=== PATIENT | female | born 1960 | race Caucasian/White ===

== ENCOUNTER → 2016-12-21 | Day surgery (SDC) | payer OTHER ==
--- NOTE | 2016-12-18 12:58 | History & Physical Pre-Op ---
General Information and HPI History of Present Illness: Mrs. Chery is a 56-year-old female with a long-standing and worsening complaint of painful and enlarging cysts on the digits of her right foot. The patient has undergone an extended course of conservative care, including shoe gear changes, reduction and activity, padding and NSAIDs. None of this is yielded her any significant relief. The patient presents today for preoperative surgical consultation and was referred to our office by Oscar Ramirez DPM. Allergies/Medications Allergies: Coded Allergies: Sulfa (Sulfonamide Antibiotics) (Severe, SWELLING 12/15/16) pregabalin (From [facility]) (Severe, BLURRED VISION 12/15/16) adhesive (Intermediate, RASH 12/15/16) fluorescein (? 12/15/16) Home Med list Aspirin ([place] Aspirin) 81 MG TAB.CHEW PROPHO (Reported) Levothyroxine Sodium (Synthroid) 75 MCG TABLET 1 TAB PO DAILY HYPOTHYROID ( Reported) Metoprolol Succ XL (Toprol XL) 25 MG TAB 0.5 TAB PO DAILY PALPATATIONS ( Reported) Pantoprazole Sodium (Protonix) 40 MG TABLET.DR 1 TAB PO DAILY GERD (Reported) Past History Medical History Gastrointestinal: GERD Endocrine: hypothyroidism Surgical History Pertinent Surgical History: non-contributory Review of Systems Review of Systems: Review of systems unremarkable except for that noted in history of present illness Exam & Diagnostic Data Physical Exam: Lungs clear bilaterally. Heart sounds rate and rhythm regular. Lower extremity physical exam demonstrates intact pedal pulses bilaterally. Pulses dorsalis pedis and posterior tibial arteries are palpable bilaterally. Patient without any sensory motor deficits. Deep tendon reflexes grossly intact. Mucoid cyst noted to the dorsal and distal interphalangeal joints of the first and fourth digits right foot. Assessment/Plan Assessment/Plan: Painful and enlarging cysts right foot. A lengthy discussion reviewing both surgical and conservative options was held with the patient at bedside and the patient elects to go forward with surgery despite the risks. As Ranked By This Provider Problem List: 1. Neoplasm of unspecified behavior of bone, soft tissue, and skin Attending MD Review Statement Attending Statement Attending MD Statement: examined this patient
[~2016-12-21] VITALS: Ht 165.1 cm; Wt 71.7 kg
[~2016-12-21] MED LIST: PROTONIX40 M3 PO; ST. JOSEPH ASPI81 MG; SYNTHROID75 MCG PO; TOPROL XL25 M1 PO
--- NOTE | 2016-12-21 10:22 | Operative Report ---
Operative/Inv Procedure Report Surgery Date: 12/21/16 Name of Procedure: 1 closure of open surgical wound with local random advancement flap right foot 2 arthroplasty hallux interphalangeal joint right foot 3 arthroplasty distal interphalangeal joint fourth toe right foot Pre-Operative Diagnosis: 1 mucoid cyst first digit right foot 2 mucoid cyst fourth digit right foot Post-Operative Diagnosis: The same Estimated Blood Loss: scant Surgeon/Wood Model Maker: CYNTHIA GRANDE,NASIR Ramirez DPM Anesthesia: moderate sedation, block Operative/Procedure Note Note: After obtaining informed consent the patient was brought to the operating room and placed on the operating table in supine position. The patient isn't securely fastened to the operating table utilizing safety belt. Gen. measures of IV sedation, 10 mL of 0.5% Marcaine plain was infiltrated about the patient's right ankle. A well-padded ankle tourniquet was placed about the patient's right lower extremity. 2 g of Ancef were delivered intravenously times one dose. Right foot and ankle within scrubbed prepped and draped in usual aseptic manner. The right lower extremity was elevated to examine to limb, which point the ankle tourniquet was inflated 250 mmHg. Attention directed dorsal aspect of the right first digit where 2 converging semielliptical incisions overlying the hallux interphalangeal joint were incised with 15 blade. The dissection was carried down to subtenons tissues and the ellipse of skin was freed and passed from the operative field a mucoid cyst was noted within the tissues. This was sent for pathologic inspection. A transverse tenotomy was then performed exposing the head of proximal phalanx. This was then resected with sagittal bone saw. The adjacent tissues were then mobilized and advanced from proximal to distal to the central aspect of the wound. The deep side was held centrally with 4-0 Vicryl. The distal flap was created with again mobilization, advancement and proximal rotation of the distal flap towards central aspect of the wound. The deep side flap was held with 4-0 Vicryl. Subtenons tissues report with 4-0 Vicryl and skin edges reprepped for nylon. Attention was then directed to the distal fourth digit where 2 converging semielliptical incisions centered over the distal with interphalangeal joint were incised with 15 blade. Is carried down to subtenons tissues and the ellipse of skin was freed along with the cyst. This was sent for pathologic inspection. Transverse tenotomy was then performed exposing the head of the middle phalanx which was resected with sagittal bone saw. The extensor tendons reports a 4-0 Vicryl skin edges reprepped for nylon. Incision dressed with Xeroform 4 x 4's Kerlix and Shaq wrap. The patient was noted tolerate both procedure and anesthesia well and the patient was transported from the operating room to recovery by sent stable best assess intact all digits right foot.
== END ==
LOC: STS 02:07
DX: M24.174 Other articular cartilage disorders, right foot (principal); M19.071 Primary osteoarthritis, right ankle and foot; M79.674 Pain in right toe(s); L72.0 Epidermal cyst; E03.9 Hypothyroidism, unspecified; K21.9 Gastro-esophageal reflux disease without esophagitis; I10 Essential (primary) hypertension
CPT/HCPCS: J0131; J2001; J2250

== ENCOUNTER → 2018-01-10 | Day surgery (SDC) | payer OTHER ==
[~2018-01-10] VITALS: Ht 162.6 cm; Wt 80.7 kg
--- NOTE | 2018-01-10 11:01 | Operative Report ---
Operative/Inv Procedure Report Surgery Date: 01/10/18 Name of Procedure: 1 ostectomy hallux IPJ right Pre-Operative Diagnosis: 1 exostosis plantar hallux IP right Post-Operative Diagnosis: The same Estimated Blood Loss: scant Surgeon/Senior Web Applications Developer: Tc GRANDE,Pedrito Ramirez DPM Anesthesia: moderate sedation, block Operative/Procedure Note Note: After obtaining informed consent the patient was brought to the operating room and placed on the operating table in supine position. The patient securely fastened to the operating regulate his HDL. After menstruation of IV sedation, 10 cc of 0.5% Marcaine plain was infiltrated about the patient's right ankle. A well-padded ankle tourniquet was placed by the patient's right lower extremity. 2 g of Ancef were delivered and received 1 dose. The right foot and ankle were then scrubbed, prepped and draped in the usual aseptic manner. The right lower extremity was elevated to exam at the limb, at which point the ankle tourniquet inflated 250 mmHg. Attention directed to the distal medial foot, with a 3 cm linear incision was made in the junction of the dorsal plantar skin the hallux IP. The dissection was then carried down the septations tissues, were all vital neurovascular structures were identified and protected. A linear capsulotomy was then performed exposing the plantar surface of the hallux interphalangeal joint. There was significant exostosis identified here. Sagittal bone saw was utilized to resect the bony prominences and a fragments were sharply excised and passed from the field. Specimen sent for pathologic inspection. The open was then irrigated with copious muscle normal sterile saline. Deep tissue was then reapproximated 3-0 Vicryl and the skin is approximate 4-0 nylon. The incision was dressed with Xeroform, 4 x 4's, Kerlix and Shaq wrap. The patient noted to tolerate both procedure and anesthesia well and patient was transferred to the operating room to recovery device in stable versus S and I told that his right foot. Please cc a copy of this dictation the Oscar Ramirez DPM.
== END ==
LOC: STS 03:48
DX: M20.21 Hallux rigidus, right foot (principal); M25.871 Other specified joint disorders, right ankle and foot; I87.2 Venous insufficiency (chronic) (peripheral); K21.0 Gastro-esophageal reflux disease with esophagitis
CPT/HCPCS: J0690; J1100; J2001; J2250